=== PATIENT | male | born 1945 | race African-American/Black ===

== ENCOUNTER 2016-04-19 05:52 | Inpatient (IN) | payer OTHER, BC ==
[2016-04-14 11:30] VITALS: BMI 31.6
[2016-04-19] MEDS ORDERED: GABAPENTIN 300 MG CAPSULE (FP) PO ONE (07:06)
[2016-04-19] MEDS ORDERED: CEFAZOLIN 2 GM in DEXTROSE 5%-WATER - 50 ML IVPB ONE (07:06)
[2016-04-19] MEDS ORDERED: CELECOXIB 200 MG CAPSULE PO ONE (07:06)
[2016-04-19] MEDS ORDERED: ROPIVICAINE 0.2%/MORPH PF/KETOROLAC - 51ML DISP.SYRINGE IA ONE ×2 (07:06→11:01)
[2016-04-19] MEDS ORDERED: TRANEXAMIC ACID 1000 MG/10 ML VIAL IVPUSH ONE ×2 (07:06→14:00)
[2016-04-19] MEDS ORDERED: DEXAMETHASONE SOD PHOSPHATE/PF 10 MG/ML SDV ONE (07:46)
[2016-04-19] MEDS ORDERED: ROPIVACAINE HCL 0.5% 30ML VIAL ONE (07:46)
[2016-04-19] MEDS ORDERED: MIDAZOLAM HCL 2 MG/2 ML SINGLE DOSE VIAL ONE (07:46)
[2016-04-19] MEDS ORDERED: PROPOFOL 20 ML ONE (08:40)
[2016-04-19] MEDS ORDERED: SUCCINYLCHOLINE CHLORIDE 200 MG/10 ML VIAL ONE (08:40)
[2016-04-19] MEDS ORDERED: ROCURONIUM BROMIDE 50 MG/5 ML VIAL ONE (08:41)
[2016-04-19] MEDS ORDERED: ceFAZolin SODIUM 1 GM VIAL ONE (08:53)
[2016-04-19] MEDS ORDERED: PROMETHAZINE HCL 25 MG/1 ML VIAL IVPUSH PRN (09:17)
[2016-04-19] MEDS ORDERED: oxyCODONE HCL 5 MG TABLET PO PRN (09:17)
[2016-04-19] MEDS ORDERED: ONDANSETRON 4 MG/2 ML VIAL IVPUSH PRN (09:17)
[2016-04-19] MEDS ORDERED: ROPIVACAINE 0.2% 400ML 400 ML ML NR ONE (09:17)
[2016-04-19] MEDS ORDERED: LACTATED RINGERS SOLUTION 1,000 ML IV SCH ×2 (09:30→11:15)
[2016-04-19] MEDS ORDERED: GABAPENTIN 300 MG CAPSULE (FP) PO SCH (10:00)
[2016-04-19] MEDS ORDERED: ONDANSETRON 4 MG/2 ML VIAL IVPB PRN (11:05)
[2016-04-19] MEDS ORDERED: MAG HYDROX/AL HYDROX/SIMETH 30 ML UNIT-DOSE CUP PO PRN (11:05)
[2016-04-19] MEDS ORDERED: MAGNESIUM HYDROX 2400MG/30ML ORAL SUSPENSION 30 ML CUP PO PRN (11:05)
[2016-04-19] MEDS ORDERED: ACETAMINOPHEN 1000 MG/100 ML VIAL (NON FORMULARY) IVPB ONE ×2 (12:00)
[2016-04-19] MEDS ORDERED: ONDANSETRON 4 MG/2 ML VIAL ONE (12:45)
[2016-04-19] MEDS ORDERED: ONDANSETRON 4 MG/2 ML VIAL IVPUSH ONE (12:45)
[2016-04-19] MEDS: CEFAZOLIN 2 GM/D5W 50 ML IVPB SCH ×2 (16:00→23:38)
[2016-04-19] MEDS: ACETAMINOPHEN 325 MG TABLET (FP) PO SCH ×2 (18:16→23:38)
--- NOTE | 2016-04-19 20:50 | CONSULT ---
Consultation: REQUESTING PROVIDER: Dr. Katz CONSULT REQUEST: We have been asked to medically evaluate this patient for ( Medical Management). HISTORY OF PRESENT ILLNESS: This is a 70 y/o male with a past medical history of Diabetes Mellitus, HTN, HLD. s/p L-TKR POD #0. Patient received at bedside alert, awake and oriented. Patient reports no pain to left knee, with full sensation to LLE. Patient reports PS 0/10. Patient reports passing flatulence, voiding, tolerating PO liquids. Patient denies fever, cough, SOB, CP, AP, N/V/D, dysuria. Past Medical History: See HPI Past Surgical History: R knee L Hip (2002) Social History: Smoking: Never Alcohol: Occasionally Drugs: None Lives at home with spouse, walks unassisted Family History: Non-contributing Allergies Allergy/AdvReac Type Severity Reaction Status Date / Time No Known Drug Allergies Allergy Verified 04/19/16 06:36 Home Medications Medication Instructions Recorded Metformin HCl 500 mg PO DAILY 04/14/16 Ramipril 5 mg PO DAILY 04/14/16 Simvastatin 10 mg PO HS 04/14/16 REVIEW OF SYSTEMS: CONSTITUTIONAL: Absent: fever, chills, diaphoresis, generalized weakness, malaise, loss of appetite, weight change HEENT: Absent: rhinorrhea, nasal congestion, throat pain, throat swelling, difficulty swallowing, mouth swelling, ear pain, eye pain, visual changes CARDIOVASCULAR: Absent: chest pain, syncope, palpitations, irregular heart rate, lightheadedness , peripheral edema RESPIRATORY: Absent: cough, shortness of breath, dyspnea with exertion, orthopnea, wheezing, stridor, hemoptysis GASTROINTESTINAL: Absent: abdominal pain, abdominal distension, nausea, vomiting, diarrhea, constipation, melena, hematochezia GENITOURINARY: Absent: dysuria, frequency, urgency, hesitancy, hematuria, flank pain, genital pain MUSCULOSKELETAL: left knee, back pain Absent: myalgia, arthralgia, joint swelling, neck pain SKIN: Absent: rash, itching, pallor HEMATOLOGIC/IMMUNOLOGIC: Absent: easy bleeding, easy bruising, lymphadenopathy, frequent infections ENDOCRINE: Absent: unexplained weight gain, unexplained weight loss, heat intolerance, cold intolerance NEUROLOGIC: Absent: headache, focal weakness or paresthesias, dizziness, unsteady gait, seizure, mental status changes, bladder or bowel incontinence PSYCHIATRIC: Absent: anxiety, depression, suicidal or homicidal ideation, hallucinations. PHYSICAL EXAMINATION Vital Signs - 24 hr 04/19/16 04/19/16 04/19/16 06:38 11:56 12:00 Temperature 98.6 F 97.5 F L Pulse Rate 77 81 75 Respiratory 16 18 18 Rate Blood Pressure 148/80 140/84 158/90 O2 Sat by Pulse 100 100 Oximetry (%) 04/19/16 04/19/16 04/19/16 12:05 12:10 12:15 Temperature Pulse Rate 67 66 72 Respiratory 18 18 18 Rate Blood Pressure 152/80 153/82 154/89 O2 Sat by Pulse 100 100 100 Oximetry (%) 04/19/16 04/19/16 04/19/16 12:30 12:45 13:00 Temperature Pulse Rate 70 57 L 63 Respiratory 18 18 18 Rate Blood Pressure 150/83 166/83 160/98 O2 Sat by Pulse 99 99 100 Oximetry (%) 04/19/16 04/19/16 04/19/16 13:13 13:14 14:28 Temperature 97.6 F Pulse Rate 59 L 59 L 67 Respiratory 18 18 18 Rate Blood Pressure 141/73 141/73 150/84 O2 Sat by Pulse 97 98 Oximetry (%) GENERAL: Awake, alert, and fully oriented, in no acute distress. HEAD: Normal with no signs of trauma. EYES: Pupils equal, round and reactive to light, extraocular movements intact, sclera anicteric, conjunctiva clear. No lid lag. EARS, NOSE, THROAT: Ears normal, nares patent, oropharynx clear without exudates. Moist mucous membranes. NECK: Normal range of motion, supple without lymphadenopathy, JVD, or masses. LUNGS: Breath sounds equal, clear to auscultation bilaterally. No wheezes, and no crackles. No accessory muscle use. HEART: Regular rate and rhythm, normal S1 and S2 without murmur, rub or gallop. ABDOMEN: Soft, nontender, not distended, normoactive bowel sounds, no guarding, no rebound, no masses. No hepatomegaly or splenomegaly. MUSCULOSKELETAL: Normal range of motion RUE/LUE/ RLE joints. LROM of LLE. No bony deformities, + L-knee tenderness, surgical dressing dry and intact, icepack ,. No CVA tenderness. UPPER EXTREMITIES: 2+ pulses, warm, well-perfused. No cyanosis. No clubbing. Cap refill <2 seconds. No peripheral edema. LOWER EXTREMITIES: 2+ pulses, warm, well-perfused. No calf tenderness. No peripheral edema. NEUROLOGICAL: Cranial nerves II-XII intact. Normal speech. Gait not observed. PSYCHIATRIC: Cooperative. Good eye contact. Appropriate mood and affect. SKIN: Warm, dry, normal turgor, no rashes or lesions noted. Laboratory Results - last 24 hr 04/19/16 04/19/16 06:26 11:56 POC Glucometer 166 171 Active Medications Generic Name Dose Route Start Last Admin Trade Name Freq PRN Reason Stop Dose Admin Acetaminophen 650 mg 04/19/16 18:00 04/19/16 18:16 Tylenol - PO 04/22/16 17:59 650 mg Q6H LINNEA Administration Al Hydroxide/Mg Hydroxide 30 ml 04/19/16 11:05 Mylanta Oral Suspension - PO Q4H PRN DYSPEPSIA Ascorbic Acid 500 mg 04/19/16 22:00 Vitamin C - PO BID [facility] Aspirin 81 mg 04/20/16 10:00 Ecotrin - PO BID [facility] Atorvastatin Calcium 10 mg 04/19/16 22:00 Lipitor - PO HS LINNEA Celecoxib 200 mg 04/20/16 10:00 Celebrex - PO DAILY LINNEA Fentanyl 25 mcg 04/19/16 09:17 Sublimaze Injection - IVPUSH 04/22/16 09:18 [id number] PRN PAIN Ferrous Sulfate 325 mg 04/19/16 22:00 Feosol - PO BID [facility] Gabapentin 300 mg 04/19/16 22:00 Neurontin - PO 04/22/16 21:59 BID LINNEA Lactated Ringer's 1,000 mls @ 75 mls/hr 04/19/16 09:30 Lactated Ringers Solution IV ASDIR LINNEA Cefazolin Sodium/Dextrose 50 mls @ 100 mls/hr 04/19/16 16:00 04/19/16 16:00 Ancef 2 Gm Premixed Ivpb - IVPB 04/20/16 00:29 100 mls/hr Q8H LINNEA Administration Lactated Ringer's 1,000 mls @ 125 mls/hr 04/19/16 11:15 Lactated Ringers Solution IV 04/20/16 06:00 ASDIR LINNEA Insulin Aspart 1 vial 04/19/16 11:09 Novolog Vial Sliding Scale - SQ 04/23/16 11:08 TIDAC PRN ELEVATED BLOOD SUGAR Protocol Magnesium Hydroxide 30 ml 04/19/16 11:05 Milk Of Magnesia - PO PRN PRN CONSTIPATION Metformin HCl 500 mg 04/20/16 07:00 Glucophage - PO ACBK LINNEA Multivitamins/Minerals/Vitamin C 1 tab 04/20/16 10:00 Tab-A-Vit - PO DAILY LINNEA Ondansetron HCl 4 mg 04/19/16 11:05 Zofran Injection IVPB Q6H PRN NAUSEA Oxycodone HCl 10 mg 04/19/16 10:00 Oxycontin - PO 04/22/16 09:18 BID LINNEA Oxycodone HCl 10 mg 04/19/16 09:17 Roxicodone - PO 04/22/16 09:18 Q4H PRN PAIN LEVEL 6-10 Oxycodone HCl 5 mg 04/19/16 09:17 Roxicodone - PO 04/22/16 09:18 Q4H PRN PAIN LEVEL 1-5 Pantoprazole Sodium 40 mg 04/20/16 10:00 Protonix - PO DAILY [facility] Ramipril 5 mg 04/20/16 10:00 Altace - PO DAILY [facility] Senna/Docusate Sodium 2 tablet 04/19/16 22:00 Pericolace - PO BID [facility] ASSESSMENT/PLAN: This is a 70 y/o man s/p L-TKR POD #0. Plan: 1. Continue Ortho Regimen - Monitor CBC - Incentive Spirometry - PT 2. Diabetes Mellitus - BGMs - FSS - Continue home meds 3. HLD - Continue home meds 4. FEN - PO Fluids - Replete lytes prn - Low Na Diet 5. DVT/PPI Prophylaxis - OOB - SCDs - PPI Dispo: We will continue to follow the patient. Thank you for this consultative opportunity. Problem List - Problems (1) Status post total left knee replacement Code(s): Z96.652 - PRESENCE OF LEFT ARTIFICIAL KNEE JOINT (2) Diabetes mellitus Code(s): E11.9 - TYPE 2 DIABETES MELLITUS WITHOUT COMPLICATIONS (3) HTN (hypertension) Code(s): I10 - ESSENTIAL (PRIMARY) HYPERTENSION (4) HLD (hyperlipidemia) Code(s): E78.5 - HYPERLIPIDEMIA, UNSPECIFIED (5) DVT prophylaxis Code(s): OHV9325 - Visit type - Emergency Visit Emergency Visit: No - New Patient This patient is new to me today: Yes Date on this admission: 04/19/16 - Critical Care Critical Care patient: No
[2016-04-19] MEDS: GABAPENTIN 300 MG CAPSULE (FP) PO SCH (21:46)
[2016-04-19] MEDS: SENNOSIDES/DOCUSATE COMBO (SENNA PLUS) TABLET (UD) PO SCH (21:46)
[2016-04-19] MEDS: ASCORBIC ACID 500 MG TABLET (FP) PO SCH (21:46)
[2016-04-19] MEDS: FERROUS SO4 325 MG TABLET (FP) PO SCH (21:46)
[2016-04-19] MEDS: ATORVASTATIN CA 10 MG TABLET (FP) PO SCH (21:46)
[2016-04-19] MEDS: oxyCODONE HCL 10 MG SUSTAINED ACTING TABLET PO SCH (21:47)
[2016-04-19] MEDS: oxyCODONE HCL 5 MG TABLET PO PRN (21:47)
[2016-04-20] MEDS: ACETAMINOPHEN 325 MG TABLET (FP) PO SCH ×4 (05:53→23:46)
[2016-04-20] MEDS: oxyCODONE HCL 5 MG TABLET PO PRN ×5 (05:54→23:46)
[2016-04-20] MEDS ORDERED: INSULIN (NOVOLOG) ASPART 100 UNITS/ML 10ML VIAL ONE (06:54)
[2016-04-20] MEDS: INSULIN SLIDING SCALE (NOVOLOG) 1 VIAL SQ PRN (06:57)
[2016-04-20] MEDS: metFORMIN HCL 500 MG TABLET (FP) PO SCH (06:57)
[2016-04-20 07:51] LABS: MCH 30.8 pg (25.7-33.7); MCHC 33.2 g/dl (32.0-35.9); MEAN CELL VOLUME 92.8 fl (80-96); MEAN PLT VOLUME 8.7 fl (7.5-11.1); PLATELET COUNT 179 K/MM3 (134-434); RDW 13.4 % (11.9-15.9); WHITE BLOOD COUNT 10.1 K/mm3 (4.0-10.0)
[2016-04-20 08:32] LABS: CREATININE 1.3 mg/dl (0.6-1.3)
--- NOTE | 2016-04-20 08:40 | PN ---
[id number] upon movement OBJECTIVE:This is a 70 y/o male with a past medical history of osteoarthritis, Diabetes Mellitus, HTN, HLD. s/p L-TKR POD #1. Vital Signs Period Temp Pulse Resp BP Sys/Warner Pulse Ox Last 24 Hr 97.5 F-98.3 F 57-81 16-18 115-166/67-98 97-100 GENERAL: The patient is awake, alert, and fully oriented, in no acute distress. HEAD: Normal with no signs of trauma. EYES: PERRL, extraocular movements intact, sclera anicteric, conjunctiva clear. No ptosis. ENT: Ears normal, nares patent, oropharynx clear without exudates, moist mucous membranes. NECK: Trachea midline, full range of motion, supple. LUNGS: Breath sounds equal, clear to auscultation bilaterally, no wheezes, no crackles, no accessory muscle use. HEART: Regular rate and rhythm, S1, S2 without murmur, rub or gallop. ABDOMEN: Soft, nontender, nondistended, normoactive bowel sounds, no guarding, no rebound, no hepatosplenomegaly, no masses. EXTREMITIES: 2+ pulses, warm, well-perfused, no edema. LEFT LOWER EXTREMITY: dressing noted a clean dry and intact, less than 2 second capillary refill +4 pedal pulse NEUROLOGICAL: Cranial nerves II through XII grossly intact. Normal speech, gait not observed. PSYCH: Normal mood, normal affect. SKIN: Warm, dry, normal turgor, no rashes or lesions noted Laboratory Results - last 24 hr 04/19/16 04/19/16 04/20/16 11:56 22:53 06:46 WBC RBC Hgb Hct MCV MCHC RDW Plt Count MPV Sodium Potassium Chloride Carbon Dioxide Anion Gap BUN Creatinine POC Glucometer 171 189 141 Random Glucose Calcium 04/20/16 04/20/16 07:00 07:00 WBC 10.1 H RBC 3.33 L Hgb 10.3 L Hct 30.9 L MCV 92.8 MCHC 33.2 RDW 13.4 Plt Count 179 MPV 8.7 Sodium 136 Potassium 4.3 Chloride 103 Carbon Dioxide 25 Anion Gap 8 BUN 17 Creatinine 1.3 POC Glucometer Random Glucose 143 H Calcium 9.0 Active Medications Generic Name Dose Route Start Last Admin Trade Name Freq PRN Reason Stop Dose Admin Acetaminophen 650 mg 04/19/16 18:00 04/20/16 05:53 Tylenol - PO 04/22/16 17:59 650 mg Q6H LINNEA Administration Al Hydroxide/Mg Hydroxide 30 ml 04/19/16 11:05 Mylanta Oral Suspension - PO Q4H PRN DYSPEPSIA Ascorbic Acid 500 mg 04/19/16 22:00 04/19/16 21:46 Vitamin C - PO 500 mg BID LINNEA Administration Aspirin 81 mg 04/20/16 10:00 Ecotrin - PO BID [facility] Atorvastatin Calcium 10 mg 04/19/16 22:00 04/19/16 21:46 Lipitor - PO 10 mg HS [facility] Administration Celecoxib 200 mg 04/20/16 10:00 Celebrex - PO DAILY [facility] Fentanyl 25 mcg 04/19/16 09:17 Sublimaze Injection - IVPUSH 04/22/16 09:18 [id number] PRN PAIN Ferrous Sulfate 325 mg 04/19/16 22:00 04/19/16 21:46 Feosol - PO 325 mg BID [facility] Administration Gabapentin 300 mg 04/19/16 22:00 04/19/16 21:46 Neurontin - PO 04/22/16 21:59 300 mg BID [facility] Administration Lactated Ringer's 1,000 mls @ 75 mls/hr 04/19/16 09:30 Lactated Ringers Solution IV ASDIR [facility] Insulin Aspart 1 vial 04/19/16 11:09 04/20/16 06:57 Novolog Vial Sliding Scale - SQ 04/23/16 11:08 2 units TIDAC PRN Administration ELEVATED BLOOD SUGAR Protocol Magnesium Hydroxide 30 ml 04/19/16 11:05 Milk Of Magnesia - PO PRN PRN CONSTIPATION Metformin HCl 500 mg 04/20/16 07:00 04/20/16 06:57 Glucophage - PO 500 mg ACBK [facility] Administration Multivitamins/Minerals/Vitamin C 1 tab 04/20/16 10:00 Tab-A-Vit - PO DAILY [facility] Ondansetron HCl 4 mg 04/19/16 11:05 Zofran Injection IVPB Q6H PRN NAUSEA Oxycodone HCl 10 mg 04/19/16 10:00 04/19/16 21:47 Oxycontin - PO 04/22/16 09:18 10 mg BID [facility] Administration Oxycodone HCl 10 mg 04/19/16 09:17 04/20/16 05:54 Roxicodone - PO 04/22/16 09:18 10 mg Q4H PRN Administration PAIN LEVEL 6-10 Oxycodone HCl 5 mg 04/19/16 09:17 Roxicodone - PO 04/22/16 09:18 Q4H PRN PAIN LEVEL 1-5 Pantoprazole Sodium 40 mg 04/20/16 10:00 Protonix - PO DAILY LINNEA Ramipril 5 mg 04/20/16 10:00 Altace - PO DAILY LINNEA Senna/Docusate Sodium 2 tablet 04/19/16 22:00 04/19/16 21:46 Pericolace - PO 2 tablet BID LINNEA Administration ASSESSMENT/PLAN: 1. S/P left total knee replacement POD #1 - pt as per orthopedic regimen - prn pain medication - Monitor CBC - Incentive Spirometry 2. endo pmh of NIDDM - fingersticks before meals and at bedtime with regular insulin coverage 3. HLD - continue altace, blood pressure at goal 4. FEN - Replete lytes prn - Low Na Diet 5. DVT/PPI Prophylaxis - OOB - SCDs - PPI Dispo: We will continue to follow the patient. Thank you for this consultative opportunity. Visit type - Emergency Visit Emergency Visit: Yes ED Registration Date: 04/19/16 Care time: The patient presented to the Emergency Department on the above date and was hospitalized for further evaluation of their emergent condition. - New Patient This patient is new to me today: No - Critical Care Critical Care patient: No - Discharge Referral Referred to [facility] Med P.C.: No
[2016-04-20] MEDS: GABAPENTIN 300 MG CAPSULE (FP) PO SCH ×2 (09:20→21:32)
[2016-04-20] MEDS: PANTOPRAZOLE 40 MG TABLET (FP) PO SCH (09:21)
[2016-04-20] MEDS: CELECOXIB 200 MG CAPSULE PO SCH (09:21)
[2016-04-20] MEDS: SENNOSIDES/DOCUSATE COMBO (SENNA PLUS) TABLET (UD) PO SCH ×2 (09:21→21:31)
[2016-04-20] MEDS: FERROUS SO4 325 MG TABLET (FP) PO SCH ×2 (09:21→21:31)
[2016-04-20] MEDS: MULTIVITAMINS (DAILY MVI) TABLET (FP) PO SCH (09:21)
[2016-04-20] MEDS: ASPIRIN COATED 81 MG TABLET.EC PO SCH ×2 (09:22→21:31)
[2016-04-20] MEDS: ASCORBIC ACID 500 MG TABLET (FP) PO SCH ×2 (09:22→21:31)
[2016-04-20] MEDS: RAMIPRIL 5 MG CAPSULE (FP) PO SCH (09:24)
[2016-04-20] MEDS: oxyCODONE HCL 10 MG SUSTAINED ACTING TABLET PO SCH ×2 (09:25→21:30)
--- NOTE | 2016-04-20 11:11 | OP ---
DATE OF OPERATION: SURGEON: Derek Davis MD ANESTHESIOLOGIST: Michael Reddy MD TYPE OF ANESTHESIA: LMA general with an adductor canal block with an indwelling catheter. PREOPERATIVE DIAGNOSIS: Severe left knee osteoarthritis with approximately 10 degrees of varus deformity, 15-degree flexion contracture. PROCEDURE: Computer-navigated left total knee replacement. HARDWARE USED: [employer] PFC Sigma PCL-retaining knee replacement system with a size 6 Pressfit femur, size 6 cemented tibia, and a 10-mm polyethylene liner. Patella was left unresurfaced. BLOOD LOSS: Approximately 150-200 mL. ANTIBIOTICS: Kefzol 2 g was given preoperatively for prophylaxis against infection. A 3rd gram was given at the time of wound closure. There was 1 g of tranexamic acid given preoperatively, a 2nd gram was given at the time of wound closure, a 3rd gram was instilled into the 2nd at the time of wound closure. COMPLICATIONS: None. CAFETERIA TEAM LEADER: The veterinary technician assistant is Mr. Ish Xavier, whose skilled surgical assistance was necessary for the retraction and protection of vital structures and for the handling and implementation of precise and delicate surgical instrumentation as well as the overall safe conveyance of the procedure. SURGEON: Derek Davis MD INDICATIONS: The patient is a 70-year-old male with severe, progressive knee osteoarthritis unrelieved with extensive conservative treatment. Treatment options were reviewed with the patient prior to surgery. Additional conservative treatment versus surgery were discussed with the patient at length. The patient wished to proceed with surgery. The risks of surgery were explained included, but not be limited to, infection, stiffness, continued pain, chance that not all his symptoms may be relieved, chance that his knee replacement could loosen up during its intended lifespan and need to be revised, chance that despite surgery he may have continued pain, chance that he could have a blood clot that could spread from his legs to his lungs and even cause , and this could occur despite prophylaxis against deep venous thrombosis, chance that he would have a permanent neurologic injury leading to permanent loss use or function and permanent chronic pain in his leg, chance that should he develop an infection it would be a complete disaster necessitating removing his knee, placing him on long-term IV antibiotics, and chance that should an infection not be curable he could be left without a knee replacement and an unlikely, but possible scenario, should he have an infection that becomes life threatening he may require an amputation of his leg. The patient understands this. He is identified. His left knee is the operative site, which was confirmed with the operating room staff, and he agrees to proceed with the planned procedure. DESCRIPTION OF PROCEDURE: After administration of an adductor canal block with indwelling catheter in the preoperative holding area, the patient is brought into the operating room where LMA general anesthetic was administered by the anesthesiologist. Tourniquet was placed behind the left leg, and the left leg was then prepped and draped in the usual sterile manner. Standard midline incision was made. The incision was approximately 15-20 cm in length. The incision was started just superior to the superior pole of the patella extending down just slightly past the tibial tubercle. The incision was carried down to the subcutaneous tissues onto the extensor mechanism of the knee. Electrocautery device was used to maintain hemostasis throughout the procedure. The quadriceps tendon was entered superiorly, and it was divided in line with its fibers roughly in the junction between the 2/3 and 1/3 at the more medial aspect leaving the majority of the quadriceps still attached distally. This was then curved. Incision was carried down past the patella curving around the patella leaving a small cuff of patella retinaculum for later repair. The patella was everted. The patient had severe tricompartmental osteoarthritis. All osteophytes and menisci was removed. ACL was released. PCL was recessed. Capsular recessions were performed to help correct the patient's 15 degrees of flexion contracture. Two sets of 4-mm guide pins were then placed in the medial aspect of the proximal tibia and medial aspect of the distal femur too, which the computer were then attached. The patient's hip center of rotation and patient's bony anatomy was then entered into the computer navigation device. The tibia and then the femur were then machined to correct the patient's 10-degree varus deformity and 15-degree flexion contracture creating balance flexion extension gaps with full and easy extension, full and easy flexion with a size 6 component with a 10-mm trial polyethylene tibial spacer with good tracking of the patella. The trial components were then removed. The exposed bony cancellous surface was then prepared using a jet lavage to create clean, exposed bony cancellous surfaces. One bag of [employer] bone cement was then mixed in a vacuum mixing bowl. This was then precoated on the tibial component and finger impacted on the exposed bony cancellous surface of the tibia. The tibial component was then impacted in place and then the femoral components were then packed in place. This was held in extension with a trial polyethylene liner until the cemented hardened. After the cement was hardened, all excess bone cement was removed. The knee was taken through a range of motion and found to have neutral varus and valgus alignment with balanced flexion and extension gaps, good tracking of the patella. The trial tibial spacer was then removed. The final polyethylene liner was then impacted and placed after thorough irrigation with the jet lavage. Again, the knee had full and easy extension and full and easy flexion with balanced flexion and extension gaps. The wounds were then irrigated with copious amounts of antibiotic normal saline solution. This was evacuated. A dilute Betadine solution was then set into the knee and left to sit for 3 minutes. This was evacuated, and again, the knee was irrigated with copious amounts of antibiotic normal saline solution. Hemostasis was achieved throughout the case, and it was once again, with the electrocautery device, the extensor mechanism was then reapproximated to itself using [id number] interrupted No. 1 Vicryl sutures. With the knee maximally flexed, a running No. 1 Stratafix suture to further reapproximate the extensor mechanism with 1 g of tranexamic acid as well a pain cocktail of bupivacaine, morphine, and Toradol were instilled into the knee. The subcutaneous tissues were then irrigated with copious amounts of antibiotic normal saline solution. The deeper tissues were closed with 2-0 Vicryl sutures, and the skin edges were reapproximated with a running Stratafix suture tied with the knee in maximal flexion. The pinhole sites were closed with Dermabond. The wound edges were further closed with Dermabond after the Dermabond had hardened. Aquacel dressings were then applied. ABD pads and thigh-high Mc stockings were then applied. The patient was then awoken and transported to the recovery room in stable condition having tolerated the procedure well. Postoperatively the patient is going to be full weightbearing as tolerated. We are going to have DVT prophylaxis with early ambulation, aspirin, sequential compression devices, Mc stockings. We are going to discontinue prophylactic antibiotics within 24 hours. We are not going to use a Serrano catheter for fear of causing a urinary tract infection with a subsequent dreaded periprosthetic infection. Of note, during the procedure, the patient had a thigh-high Mc stocking and sequential compression device on his nonoperative leg throughout the procedure. DEREK DAVIS M.D. [id number]
--- NOTE | 2016-04-20 12:30 | PN ---
Progress Note (short form) - Note Progress Note: Anesthesia Pt s/p TKR under spinal w adductor canal cath and tibial nerve block for postop pain control. O: VAS 3/10 -- alleviated by po pain meds. Pt c/o leaking around adductor canal catheter insertion site. Catheter appears to have been partially pulled out. No redness or swelling. A/P: POD #1 for TKR. Stable postop course. No complications secondary to anesthesia. Adductor catheter pulled, tip intact. Continue po pain meds.
--- NOTE | 2016-04-20 15:53 | PN ---
Progress Note (short form) - Note Progress Note: Orthopedics S: Patient relates feeling well, pain well controlled. Denies any Numbness/ tingling to either lower extremity. Denies CP/SOB/N/D/V/Calf pain or cramping. Ambulating PT with walk walker. Tolerating diet and voiding without compromise. O: CBC, BMP 04/20/16 07:00 04/20/16 07:00 Vital Signs Period Temp Pulse Resp BP Sys/Warner Pulse Ox Last 24 Hr 98.3 F-98.6 F 66-76 16-19 115-149/67-77 96-97 GEN: Patient supine in recliner during physical therapy. STEWART/NAD/VSS/Afebrile, color good well appearing answering all questions appropriately. L LE: Skin warm and dry, dressings with minimal staining. Mild edema to knee without erythema/warmth. Sensation intact to light touch throughout, neurovascularly intact distally. Strength 5/5 EHL/FHL/TA/GS with good dorsi/ plantar flexion. Calf soft non-tender, pedal pulses x2 intact. A/P: 70M s/p L TKR POD#1 1. Pain control 2. WBAT L LE; use walker for ambulation 3. Cont. PT for ambulation/strength, stability 4. DVT Proph: EC ASA 81mg BID x4 weeks 5. Neuro checks L LE per unit routine 6. Patient may shower, maintain dressing 7. H&H/WBC stable 8. d/c planning
[2016-04-20] MEDS: ATORVASTATIN CA 10 MG TABLET (FP) PO SCH (21:31)
[2016-04-21] MEDS: ACETAMINOPHEN 325 MG TABLET (FP) PO SCH ×2 (06:23→13:12)
[2016-04-21] MEDS: oxyCODONE HCL 5 MG TABLET PO PRN ×3 (06:24→14:11)
[2016-04-21 06:27] VITALS: BP 153/65; PULSE 79; TEMP 98
[2016-04-21] MEDS: metFORMIN HCL 500 MG TABLET (FP) PO SCH (06:28)
[2016-04-21] MEDS: INSULIN SLIDING SCALE (NOVOLOG) 1 VIAL SQ PRN (06:50)
[2016-04-21 09:02] LABS: MCH 31.1 pg (25.7-33.7); MCHC 32.9 g/dl (32.0-35.9); MEAN CELL VOLUME 94.5 fl (80-96); MEAN PLT VOLUME 9.3 fl (7.5-11.1); PLATELET COUNT 184 K/MM3 (134-434); RDW 13.5 % (11.9-15.9); WHITE BLOOD COUNT 9.3 K/mm3 (4.0-10.0)
[2016-04-21] MEDS: oxyCODONE HCL 10 MG SUSTAINED ACTING TABLET PO SCH (09:21)
[2016-04-21] MEDS: CELECOXIB 200 MG CAPSULE PO SCH (09:22)
[2016-04-21] MEDS: RAMIPRIL 5 MG CAPSULE (FP) PO SCH (09:22)
[2016-04-21] MEDS: FERROUS SO4 325 MG TABLET (FP) PO SCH (09:22)
[2016-04-21] MEDS: PANTOPRAZOLE 40 MG TABLET (FP) PO SCH (09:22)
[2016-04-21] MEDS: MULTIVITAMINS (DAILY MVI) TABLET (FP) PO SCH (09:23)
[2016-04-21] MEDS: ASPIRIN COATED 81 MG TABLET.EC PO SCH (09:24)
[2016-04-21] MEDS: GABAPENTIN 300 MG CAPSULE (FP) PO SCH (09:24)
[2016-04-21] MEDS: SENNOSIDES/DOCUSATE COMBO (SENNA PLUS) TABLET (UD) PO SCH (09:24)
[2016-04-21] MEDS: ASCORBIC ACID 500 MG TABLET (FP) PO SCH (09:24)
--- NOTE | 2016-04-26 14:42 | PATH ---
Surgical Pathology Report Patient Name: SANJIV LIND Med. Rec. #: [id number] /Age/Gender: 1945 (Age: 70) / M Account: [id number] Location: [facility] MED-SURG Taken: 04/19/2016 Received: 04/19/2016 Reported: 04/26/2016 Physicians: Declan Katz M.D. Specimen(s) Received BONE LEFT KNEE Clinical History Unilateral primary osteoarthritis left knee Final Diagnosis BONE, LEFT KNEE, TOTAL KNEE REPLACEMENT: DEGENERATIVE JOINT DISEASE. Electronically Signed Alysa Romero M.D. Gross Description Received in formalin, labeled "bone left knee," is a 15.0 x 11.0 x 2.0 cm aggregate of multiple rivera, irregular portions of bone and soft tissue. The tibial plateau measures 8.5 x 6.2 x 1.5 cm. There is a 2 cm in greatest dimension area of eburnation present. The remaining articular surfaces are rivera-yellow and diffusely granular. The underlying trabecular bone is yellow and hard. Pullman Conductor sections are submitted in one cassette, following decalcification. 04/21/201604/21/2016
== END 2016-04-21 14:15 | disposition home health service (06) | DRG 470 ==
LOC: FM/S 05:52
PROVIDERS: ADMIT Orthopaedic Surgery; ATTEND Orthopaedic Surgery
PROC: 8E0YXBZ Computer Assisted Procedure of Lower Extremity (ICD-10-PCS; 2016-04-19)
PROC: 0SRD0J9 Replacement of Left Knee Joint with Synthetic Substitute, Cemented, Open Approach (ICD-10-PCS; principal; 2016-04-19 09:29)
DX: M17.12 Unilateral primary osteoarthritis, left knee (principal); E11.9 Type 2 diabetes mellitus without complications; Z79.4 Long term (current) use of insulin; I10 Essential (primary) hypertension; E78.5 Hyperlipidemia, unspecified; Z96.651 Presence of right artificial knee joint
CPT/HCPCS: 36415; 73560-TC-LT; 80048; 85027; 88304-TC; 94010; 94760; 97116-GP; 97162-GP

== ENCOUNTER 2016-10-04 06:43 | Inpatient (IN) | payer OTHER, BC ==
[2016-09-19 11:07] VITALS: BMI 31.4
[2016-10-04] MEDS ORDERED: DEXAMETHASONE SOD PHOSPHATE/PF 10 MG/ML SDV ONE (07:10)
[2016-10-04] MEDS ORDERED: BUPIVACAINE HCL/PF (5 MG/ML) 30 ML VIAL IJ ONE (07:11)
[2016-10-04] MEDS ORDERED: MIDAZOLAM HCL 2 MG/2 ML SINGLE DOSE VIAL ONE (07:11)
[2016-10-04] MEDS ORDERED: SODIUM CHLORIDE 0.9% P/F 10 ML VIAL IJ ONE (07:11)
[2016-10-04] MEDS ORDERED: ROPIVICAINE 0.2%/MORPH PF/KETOROLAC - 51ML DISP.SYRINGE IA ONE ×2 (07:23→11:39)
[2016-10-04] MEDS ORDERED: TRANEXAMIC ACID 1000 MG/10 ML VIAL ONE ×2 (07:23→09:23)
[2016-10-04] MEDS ORDERED: oxyCODONE HCL 10 MG SUSTAINED ACTING TABLET ONE (07:56)
[2016-10-04] MEDS ORDERED: GABAPENTIN 300 MG CAPSULE (FP) ONE (07:57)
[2016-10-04] MEDS ORDERED: CELECOXIB 200 MG CAPSULE ONE (07:57)
[2016-10-04] MEDS ORDERED: ONDANSETRON 4 MG/2 ML VIAL ONE (08:58)
[2016-10-04] MEDS ORDERED: DEXAMETHASONE SOD PHOSPHATE 4 MG/1 ML VIAL ONE (08:58)
[2016-10-04] MEDS ORDERED: SUCCINYLCHOLINE CHLORIDE 200 MG/10 ML VIAL ONE (08:59)
[2016-10-04] MEDS ORDERED: ROCURONIUM BROMIDE 50 MG/5 ML VIAL ONE (08:59)
[2016-10-04] MEDS ORDERED: PROPOFOL 20 ML ONE (08:59)
[2016-10-04] MEDS ORDERED: ceFAZolin SODIUM 1 GM VIAL ONE (09:11)
[2016-10-04] MEDS ORDERED: PHENYLEPHRINE HCL 10 MG/1 ML SINGLE DOSE VIAL ONE ×2 (09:23→09:24)
[2016-10-04] MEDS ORDERED: HYDROmorphone HCL/PF 1 MG/ML VIAL (FOR PYXIS CHARGING ONLY) ONE (10:35)
[2016-10-04] MEDS ORDERED: oxyCODONE HCL 5 MG TABLET PO PRN (10:40)
[2016-10-04] MEDS ORDERED: ONDANSETRON 4 MG/2 ML VIAL IVPUSH PRN (10:40)
[2016-10-04] MEDS ORDERED: ACETAMINOPHEN 325 MG TABLET (FP) PO SCH (10:45)
[2016-10-04] MEDS ORDERED: LACTATED RINGERS SOLUTION 1,000 ML IV SCH ×2 (10:45→13:15)
[2016-10-04] MEDS ORDERED: TRANEXAMIC ACID 1000 MG/10 ML VIAL IVPUSH ONE (11:37)
[2016-10-04] MEDS ORDERED: ONDANSETRON 4 MG/2 ML VIAL IVPB PRN (13:19)
[2016-10-04] MEDS ORDERED: MAG HYDROX/AL HYDROX/SIMETH 30 ML UNIT-DOSE CUP PO PRN (13:19)
[2016-10-04] MEDS ORDERED: TRANEXAMIC ACID 1000 MG/10 ML VIAL IVPB ONE (15:00)
[2016-10-04] MEDS: oxyCODONE HCL 5 MG TABLET PO PRN ×2 (15:28→21:40)
[2016-10-04] MEDS: CEFAZOLIN 2 GM/D5W 50 ML IVPB SCH (18:19)
[2016-10-04] MEDS: SENNOSIDES/DOCUSATE COMBO (SENNA PLUS) TABLET (UD) PO SCH (21:39)
[2016-10-04] MEDS: GABAPENTIN 300 MG CAPSULE (FP) PO SCH (21:39)
[2016-10-04] MEDS: FERROUS SO4 325 MG TABLET (FP) PO SCH (21:39)
[2016-10-04] MEDS: ASCORBIC ACID 500 MG TABLET (FP) PO SCH (21:40)
[2016-10-04] MEDS: oxyCODONE HCL 10 MG SUSTAINED ACTING TABLET PO SCH (21:40)
[2016-10-04] MEDS: ACETAMINOPHEN 325 MG TABLET (FP) PO SCH (21:41)
[2016-10-05] MEDS: CEFAZOLIN 2 GM/D5W 50 ML IVPB SCH (01:29)
--- NOTE | 2016-10-05 02:53 | CONSULT ---
Consultation: REQUESTING PROVIDER: Dr. Katz CONSULT REQUEST: We have been asked to medically evaluate this patient for ( medical management). HISTORY OF PRESENT ILLNESS: This is a pleasant 71 y/o man with a past medical hx of Osteoarthritis. Who is Day 0 R-TKR. Patient is aaox3, who has no complaints at present. Patient reports ambulating with his waker/RN to the bathroom this evening. He denies active pain, 0/10 to his right knee. Patient reports having full sensation to her operative leg/foot. Patient reports voiding, no BM or flatulence. Patient reports eating and drinking without incident. Patient denies feverm chills, cough, SOB, CP, palpitations, AP, N/V/D, constipation, dysuria PAST MEDICAL HISTORY: HTN HLD [place] DM PAST SURGICAL HISTORY: L- THR L-THR Colonoscopy FAMILY HISTORY: Non-Contributory SOCIAL HISTORY: Tobacco: Never Alcohol: Socially Illicit Drugs: None REVIEW OF SYSTEMS: CONSTITUTIONAL: generalized weakness Absent: fever, chills, diaphoresis, malaise, loss of appetite, weight change HEENT: Absent: rhinorrhea, nasal congestion, throat pain, throat swelling, difficulty swallowing, mouth swelling, ear pain, eye pain, visual changes CARDIOVASCULAR: Absent: chest pain, syncope, palpitations, irregular heart rate, lightheadedness , peripheral edema RESPIRATORY: Absent: cough, shortness of breath, dyspnea with exertion, orthopnea, wheezing, stridor, hemoptysis GASTROINTESTINAL: Absent: abdominal pain, abdominal distension, nausea, vomiting, diarrhea, constipation, melena, hematochezia GENITOURINARY: Absent: dysuria, frequency, urgency, hesitancy, hematuria, flank pain, genital pain MUSCULOSKELETAL: Absent: myalgia, arthralgia, joint swelling, back pain, neck pain SKIN: Absent: rash, itching, pallor HEMATOLOGIC/IMMUNOLOGIC: Absent: easy bleeding, easy bruising, lymphadenopathy, frequent infections ENDOCRINE: Absent: unexplained weight gain, unexplained weight loss, heat intolerance, cold intolerance NEUROLOGIC: Absent: headache, focal weakness or paresthesias, dizziness, unsteady gait, seizure, mental status changes, bladder or bowel incontinence PSYCHIATRIC: Absent: anxiety, depression, suicidal or homicidal ideation, hallucinations. PHYSICAL EXAMINATION Vital Signs - 24 hr 10/04/16 10/04/16 10/04/16 07:30 12:28 12:35 Temperature 98.4 F 98.4 F Pulse Rate 83 97 H 98 H Respiratory 18 18 18 Rate Blood Pressure 136/87 155/67 149/74 O2 Sat by Pulse 98 96 Oximetry (%) 10/04/16 10/04/16 10/04/16 12:40 12:45 13:00 Temperature Pulse Rate 79 79 93 H Respiratory 20 20 20 Rate Blood Pressure 141/68 134/69 146/71 O2 Sat by Pulse 97 98 98 Oximetry (%) 10/04/16 10/04/16 10/04/16 13:15 14:42 20:48 Temperature 98.2 F Pulse Rate 79 72 Respiratory 20 18 18 Rate Blood Pressure 155/92 117/65 O2 Sat by Pulse 98 Oximetry (%) 10/04/16 21:40 Temperature 97.5 F L Pulse Rate 63 Respiratory 16 Rate Blood Pressure 119/69 O2 Sat by Pulse 100 Oximetry (%) GENERAL: Awake, alert, and fully oriented, in no acute distress. HEAD: Normal with no signs of trauma. EYES: Pupils equal, round and reactive to light, extraocular movements intact, sclera anicteric, conjunctiva clear. No lid lag. EARS, NOSE, THROAT: Ears normal, nares patent, oropharynx clear without exudates. Moist mucous membranes. NECK: Normal range of motion, supple without lymphadenopathy, JVD, or masses. LUNGS: Breath sounds equal, clear to auscultation bilaterally. No wheezes, and no crackles. No accessory muscle use. HEART: Regular rate and rhythm, normal S1 and S2 without murmur, rub or gallop. ABDOMEN: Soft, nontender, not distended, normoactive bowel sounds, no guarding, no rebound, no masses. No hepatomegaly or splenomegaly. MUSCULOSKELETAL: Normal range of motion at RUE, LUE, LLE joints. No bony deformities or tenderness. No CVA tenderness. +LROM RLE +dressing dry and intact , ice pack UPPER EXTREMITIES: 2+ pulses, warm, well-perfused. No cyanosis. No clubbing. Cap refill <2 seconds. No peripheral edema. LOWER EXTREMITIES: 2+ pulses, warm, well-perfused. No calf tenderness. No peripheral edema. NEUROLOGICAL: Cranial nerves II-XII intact. Normal speech. Gait not observed. PSYCHIATRIC: Cooperative. Good eye contact. Appropriate mood and affect. SKIN: Warm, dry, normal turgor, no rashes or lesions noted. Laboratory Results - last 24 hr 10/04/16 10/04/16 07:11 12:40 POC Glucometer 145 181 Active Medications Generic Name Dose Route Start Last Admin Trade Name Freq PRN Reason Stop Dose Admin Acetaminophen 650 mg 10/04/16 20:00 10/04/16 21:41 Tylenol - PO 10/07/16 10:44 650 mg Q6H LINNEA Administration Al Hydroxide/Mg Hydroxide 30 ml 10/04/16 13:19 Mylanta Oral Suspension - PO Q4H PRN INDIGESTION Ascorbic Acid 500 mg 10/04/16 22:00 10/04/16 21:40 Vitamin C - PO 500 mg BID LINNEA Administration Aspirin 325 mg 10/05/16 08:00 Asa - PO 11/03/16 07:59 BID@0800,2000 [facility] Celecoxib 200 mg 10/05/16 10:00 Celebrex - PO DAILY [facility] Fentanyl 50 mcg 10/04/16 10:40 Sublimaze Injection - IVPUSH 10/07/16 10:41 [id number] PRN PAIN Ferrous Sulfate 325 mg 10/04/16 22:00 10/04/16 21:39 Feosol - PO 325 mg BID LINNEA Administration Gabapentin 300 mg 10/04/16 22:00 10/04/16 21:39 Neurontin - PO 300 mg BID LINNEA Administration Lactated Ringer's 1,000 mls @ 125 mls/hr 10/04/16 10:45 10/05/16 01:46 Lactated Ringers Solution IV Not Given ASDIR [facility] Lactated Ringer's 1,000 mls @ 125 mls/hr 10/04/16 13:15 10/05/16 01:47 Lactated Ringers Solution IV Not Given ASDIR [facility] Metformin HCl 500 mg 10/05/16 07:00 Glucophage - PO DAILY@0700 [facility] Multivitamins/Minerals/Vitamin C 1 tab 10/05/16 10:00 Tab-A-Vit - PO DAILY [facility] Ondansetron HCl 4 mg 10/04/16 13:19 Zofran Injection IVPB Q6H PRN NAUSEA AND/OR VOMITING Oxycodone HCl 10 mg 10/04/16 22:00 10/04/16 21:40 Oxycontin - PO 10/07/16 10:41 10 mg BID LINNEA Administration Oxycodone HCl 5 mg 10/04/16 10:40 Roxicodone - PO Q3H PRN PAIN LEVEL 1-5 Oxycodone HCl 10 mg 10/04/16 10:40 10/04/16 21:40 Roxicodone - PO 10 mg Q3H PRN Administration PAIN LEVEL 6-10 Pantoprazole Sodium 40 mg 10/05/16 10:00 Protonix - PO DAILY LINNEA Ramipril 5 mg 10/05/16 10:00 Altace - PO DAILY LINNEA Senna/Docusate Sodium 2 tablet 10/04/16 22:00 10/04/16 21:39 Pericolace - PO 2 tablet BID LINNEA Administration ASSESSMENT/PLAN: Dispo: We will continue to follow the patient. Thank you for this consultative opportunity. Problem List - Problems (1) Status post total right knee replacement Assessment/Plan: - Continue Ortho regimen - PT - Incentive spirometer - Continue home meds - Monitor CBC, BMP - Monitor vitals Code(s): Z96.651 - PRESENCE OF RIGHT ARTIFICIAL KNEE JOINT (2) Diabetes mellitus Assessment/Plan: - Controlled - BGMs - Continue home med - Monitor renal function Code(s): E11.9 - TYPE 2 DIABETES MELLITUS WITHOUT COMPLICATIONS (3) HLD (hyperlipidemia) Assessment/Plan: - Continue home med - Monitor liver function Code(s): E78.5 - HYPERLIPIDEMIA, UNSPECIFIED (4) HTN (hypertension) Assessment/Plan: - Controlled - Monitor BP - Continue home meds - Monitor renal function Code(s): I10 - ESSENTIAL (PRIMARY) HYPERTENSION (5) DVT prophylaxis Code(s): BYS5466 - Visit type - Emergency Visit Emergency Visit: No - New Patient This patient is new to me today: Yes Date on this admission: 10/04/16 - Critical Care Critical Care patient: No
[2016-10-05] MEDS: ACETAMINOPHEN 325 MG TABLET (FP) PO SCH ×4 (05:12→20:45)
[2016-10-05] MEDS: metFORMIN HCL 500 MG TABLET (FP) PO SCH (06:08)
[2016-10-05] MEDS: oxyCODONE HCL 5 MG TABLET PO PRN ×2 (06:13→13:14)
--- NOTE | 2016-10-05 08:14 | PN ---
Physical Exam: SUBJECTIVE: Patient seen and examined, reports feeling well, minimal pain to the right lower extremity, patient denies any paresthesia. OBJECTIVE: patient is a 71 y/o female with a past medical history of HTN, HLD , and NIDDM. Patient is s/p right TKR, 10/04/16, Dr Katz, spinal anesthesia. Vital Signs Period Temp Pulse Resp BP Sys/Warner Pulse Ox Last 24 Hr 97.5 F-98.4 F 63-98 16-20 115-155/65-92 96-100 GENERAL: The patient is awake, alert, and fully oriented, in no acute distress. HEAD: Normal with no signs of trauma. EYES: PERRL, extraocular movements intact, sclera anicteric, conjunctiva clear. No ptosis. ENT: Ears normal, nares patent, oropharynx clear without exudates, moist mucous membranes. NECK: Trachea midline, full range of motion, supple. LUNGS: Breath sounds equal, clear to auscultation bilaterally, no wheezes, no crackles, no accessory muscle use. HEART: Regular rate and rhythm, S1, S2 without murmur, rub or gallop. ABDOMEN: Soft, nontender, nondistended, normoactive bowel sounds, no guarding, no rebound, no hepatosplenomegaly, no masses. EXTREMITIES: 2+ pulses, warm, well-perfused, no edema. RIGHT LOWER EXTREMITY: dressing CDI, MILO/SCD, less than 3 second capillary refill, +3 pedal pulse, patient is able to move the digits of the foot without any difficulty NEUROLOGICAL: Cranial nerves II through XII grossly intact. Normal speech, gait not observed. PSYCH: Normal mood, normal affect. SKIN: Warm, dry, normal turgor, no rashes or lesions noted Laboratory Results - last 24 hr 10/04/16 10/05/16 12:40 06:05 POC Glucometer 181 164 Active Medications Generic Name Dose Route Start Last Admin Trade Name Freq PRN Reason Stop Dose Admin Acetaminophen 650 mg 10/04/16 20:00 10/05/16 05:12 Tylenol - PO 10/07/16 10:44 Not Given Q6H LINNEA Al Hydroxide/Mg Hydroxide 30 ml 10/04/16 13:19 Mylanta Oral Suspension - PO Q4H PRN INDIGESTION Ascorbic Acid 500 mg 10/04/16 22:00 10/04/16 21:40 Vitamin C - PO 500 mg BID [facility] Administration Aspirin 325 mg 10/05/16 08:00 Asa - PO 11/03/16 07:59 BID@0800,2000 [facility] Celecoxib 200 mg 10/05/16 10:00 Celebrex - PO DAILY [facility] Fentanyl 50 mcg 10/04/16 10:40 Sublimaze Injection - IVPUSH 10/07/16 10:41 [id number] PRN PAIN Ferrous Sulfate 325 mg 10/04/16 22:00 10/04/16 21:39 Feosol - PO 325 mg BID [facility] Administration Gabapentin 300 mg 10/04/16 22:00 10/04/16 21:39 Neurontin - PO 300 mg BID [facility] Administration Lactated Ringer's 1,000 mls @ 125 mls/hr 10/04/16 10:45 10/05/16 01:46 Lactated Ringers Solution IV Not Given ASDIR [facility] Lactated Ringer's 1,000 mls @ 125 mls/hr 10/04/16 13:15 10/05/16 01:47 Lactated Ringers Solution IV Not Given ASDIR [facility] Metformin HCl 500 mg 10/05/16 07:00 10/05/16 06:08 Glucophage - PO 500 mg DAILY@0700 [facility] Administration Multivitamins/Minerals/Vitamin C 1 tab 10/05/16 10:00 Tab-A-Vit - PO DAILY [facility] Ondansetron HCl 4 mg 10/04/16 13:19 Zofran Injection IVPB Q6H PRN NAUSEA AND/OR VOMITING Oxycodone HCl 10 mg 10/04/16 22:00 10/04/16 21:40 Oxycontin - PO 10/07/16 10:41 10 mg BID [facility] Administration Oxycodone HCl 5 mg 10/04/16 10:40 Roxicodone - PO Q3H PRN PAIN LEVEL 1-5 Oxycodone HCl 10 mg 10/04/16 10:40 10/05/16 06:13 Roxicodone - PO 10 mg Q3H PRN Administration PAIN LEVEL 6-10 Pantoprazole Sodium 40 mg 10/05/16 10:00 Protonix - PO DAILY [facility] Ramipril 5 mg 10/05/16 10:00 Altace - PO DAILY [facility] Senna/Docusate Sodium 2 tablet 10/04/16 22:00 10/04/16 21:39 Pericolace - PO 2 tablet BID LINNEA Administration ASSESSMENT/PLAN: 1) ortho: s/p right TKR POD #1 - physical therapy - prn pain medication - incentive spirometer 2) endo niddm - continue metformin 3) card hyperlipidemia - resume statin upon discharge hypertension - continue ramipril, b/p at goal f/e/n - low sodium/cholesterol diet ppx asa oob pt Dispo: We will continue to follow the patient. Thank you for this consultative opportunity. Visit type - Emergency Visit Emergency Visit: No - New Patient This patient is new to me today: Yes Date on this admission: 10/05/16 - Critical Care Critical Care patient: No - Discharge Referral Referred to [facility] Med P.C.: No
[2016-10-05 08:47] LABS: MEAN PLT VOLUME 9.1 fl (7.5-11.1); PLATELET COUNT 189 K/MM3 (134-434); RDW 14.2 % (11.9-15.9)
[2016-10-05 08:52] LABS: ANION GAP 8 (8-16); CALCIUM 8.8 mg/dl (8.4-10.2); CO2 24 mmol/L (22-28); CREATININE 1.2 mg/dl (0.6-1.3)
[2016-10-05] MEDS: PANTOPRAZOLE 40 MG TABLET (FP) PO SCH (09:38)
[2016-10-05] MEDS: oxyCODONE HCL 10 MG SUSTAINED ACTING TABLET PO SCH ×2 (09:38→21:21)
[2016-10-05] MEDS: SENNOSIDES/DOCUSATE COMBO (SENNA PLUS) TABLET (UD) PO SCH ×2 (09:38→21:22)
[2016-10-05] MEDS: RAMIPRIL 5 MG CAPSULE (FP) PO SCH (09:38)
[2016-10-05] MEDS: GABAPENTIN 300 MG CAPSULE (FP) PO SCH ×2 (09:38→21:22)
[2016-10-05] MEDS: FERROUS SO4 325 MG TABLET (FP) PO SCH ×2 (09:38→21:22)
[2016-10-05] MEDS: MULTIVITAMINS (DAILY MVI) TABLET (FP) PO SCH (09:39)
[2016-10-05] MEDS: ASCORBIC ACID 500 MG TABLET (FP) PO SCH ×2 (09:39→21:22)
[2016-10-05] MEDS: CELECOXIB 200 MG CAPSULE PO SCH (09:39)
[2016-10-05] MEDS: ASPIRIN 325 MG TABLET PO SCH ×2 (09:46→21:20)
--- NOTE | 2016-10-05 10:57 | OP ---
DATE OF OPERATION: 10/04/2016 SURGEON: Derek Davis MD WINDOWS APPLICATION DEVELOPER: Karie Manriquez, whose skilled surgical assistance was necessary for the retraction and protection of vital structures and for the handling and implementation of precise and delicate surgical instrumentation as well as the overall safe conveyance of the procedures. ANESTHESIOLOGIST: Zack Trujillo MD TYPE OF ANESTHESIA: Spinal with bilateral adductor canal blocks. PREOPERATIVE DIAGNOSIS: Severe right knee osteoarthritis with varus deformity and flexion contracture. POSTOPERATIVE DIAGNOSIS: Severe right knee osteoarthritis with varus deformity and flexion contracture. PROCEDURE: Computer-navigated right total knee replacement. HARDWARE USED: Highlight and Highlight PFC Sigma PCL-retaining knee replacement system with a size 6 Press-Fit femur, size 6 cemented tibia, and a 10-mm polyethylene liner. One bag of AccessData bone cement was used. It was used with a vacuum mixing bowl. Patella was left unresurfaced. BLOOD LOSS: Approximately 150 mL. ANTIBIOTICS: Kefzol 2 g was given preoperatively for prophylaxis against infection. Additional Kefzol was given at the time of wound closure. There was 1 g of tranexamic acid given preoperatively, a 2nd gram was given at the time of wound closure, a 3rd gram was instilled into the wound at the time of wound closure. FLUID GIVEN: Crystalloid. COMPLICATIONS: None. INDICATIONS: The patient is a 71-year-old male well known to me status post total knee replacement on his opposite knee from which he has made an excellent recovery. He would now like to proceed with right total knee replacement as his knee is bothering him severely. Treatment options were reviewed. Both operative and nonoperative treatment was discussed at length with the patient including additional therapy, injection therapy versus surgery. The patient understands the risks involved with the surgery. We again reviewed these with him. They were explained to include, but not be limited to, infection, stiffness, continued pain, chance that not all his symptoms may be relieved, chance that he could have a blood clot that could spread from his legs to his lungs and even cause , and this could occur despite DVT prophylaxis, chance that should he develop an infection it would be a complete disaster necessitating removing his knee, placing him on long-term IV antibiotics, and chance that should the infection not be curable he could be left without a knee replacement. The patient understands this. He has identified his right knee is the operative site, which I have signed, and he agrees to proceed with the planned procedure. DESCRIPTION OF PROCEDURE: After administration of regional anesthetic by the anesthesiologist in the preoperative holding area, the patient was brought into the operating room where spinal anesthetic was administered by the anesthesiologist. The right leg then had a tourniquet placed behind the right leg, but it was not inflated during the procedure. Preoperative range of motion was approximately loss of terminal 20 degrees of extension with flexion limited to 70 degrees. The leg was then prepped and draped in the usual sterile manner. Standard midline incision was made. The incision was carried down to the subcutaneous tissues onto the extensor mechanism using the electrocautery device and Aquamantys device throughout the procedure to maintain hemostasis. The patella was everted. There was obvious, severe tricompartmental osteoarthritis. All of the osteophytes and menisci were removed. ACL was released. PCL was recessed. Medial and posterior capsular release was then performed. After this, 2 sets of 4-mm guide pins were then placed in the medial aspect of the proximal tibia and medial aspect of the distal femur too, which the computer ray was then attached. The patient's hip center of rotation and patient's bony anatomy were then entered into the computer navigation device. The tibia then the femur were machined to create balance flexion/extension gaps with neutral varus/valgus alignment. Trial components with a size 6 femur and size 6 tibia with a 10-mm polyethylene tray revealed full and easy extension, full and easy flexion with good tracking of the patella, neutral varus/valgus alignment. No instability of varus or valgus stress throughout the range. The trial components were then removed. The exposed bony cancellous surfaces and wound were then prepared irrigated with copious amounts of antibiotic normal saline solution. One bag of Batsheva bone cement was then mixed in a vacuum mixing bowl. This was then finger pressurized into the exposed bony cancellous surfaces of the patient's proximal tibia as well as being precoated on the tibial component. The tibial component was then impacted in place. The femoral component was then impacted in place. The knee was held in extension with a trial 10-mm polyethylene liner until the cement had hardened. Once again, the knee was taken through a trial range of motion with the trial spacer and found to have equal stability and excellent balance compared to that of the trial. The final polyethylene spacer was then impacted in place. The patient had full and easy extension and full and easy flexion with neutral varus/valgus angulation and excellent tracking of the patella. A dilute Betadine solution was instilled into the wound and allowed to sit for 3 minutes. This was then evacuated, and the wound was then irrigated with copious amounts of antibiotic normal saline solution. The extensor mechanism was then reapproximated to itself using interrupted [id number] No. 2 FiberWire, and then with the knee in maximum flexion, a running No. 1 Stratafix suture to then used in a running fashion to further reapproximate the extensor mechanism. Then 1 g of tranexamic acid and 60 mL of local including bupivacaine, morphine, and Toradol were instilled into the knee. The subcutaneous tissues were then closed with undyed 2-0 Vicryl suture and then a running 2-0 Stratafix suture with the knee in maximal flexion to further reapproximate the skin edges. Dermabond was then applied as well as closing the stab incisions for the guide pins for the computer navigation device were closed with 3-0 Biosyn and Dermabond. After the Dermabond had fully hardened, Aquacel dressings were then applied, an ABD pad was applied, and then thigh-high Mc stockings were placed on the patient's leg. Postoperatively, the patient will be full weightbearing as tolerated. We are going to have DVT prophylaxis with bilateral thigh high Mc stockings, sequential compression devices, early amputation, and aspiration 325 mg twice daily for the first 4 weeks. We are not going to use a Serrano catheter if at all possible to prevent a urinary tract infection and dreaded periprosthetic infection. We are going to discontinue prophylactic antibiotics within 24 hours. Intraoperative x-rays were obtained as well. DEREK DAVIS M.D. [id number]
[2016-10-05 11:22] LABS: GLUCOSE,RANDOM 154 mg/dl (74-106)
[2016-10-06] MEDS: ACETAMINOPHEN 325 MG TABLET (FP) PO SCH ×2 (01:21→08:00)
[2016-10-06] MEDS: metFORMIN HCL 500 MG TABLET (FP) PO SCH (06:22)
[2016-10-06] MEDS: ASPIRIN 325 MG TABLET PO SCH (08:00)
[2016-10-06 08:24] LABS: MCH 31.1 pg (25.7-33.7); MCHC 33.4 g/dl (32.0-35.9); MEAN CELL VOLUME 93.2 fl (80-96); MEAN PLT VOLUME 9.2 fl (7.5-11.1); PLATELET COUNT 170 K/MM3 (134-434); RDW 14.6 % (11.9-15.9); WHITE BLOOD COUNT 10.1 K/mm3 (4.0-10.8)
[2016-10-06] MEDS: RAMIPRIL 5 MG CAPSULE (FP) PO SCH (10:20)
[2016-10-06] MEDS: FERROUS SO4 325 MG TABLET (FP) PO SCH (10:20)
[2016-10-06] MEDS: CELECOXIB 200 MG CAPSULE PO SCH (10:20)
[2016-10-06] MEDS: GABAPENTIN 300 MG CAPSULE (FP) PO SCH (10:21)
[2016-10-06] MEDS: oxyCODONE HCL 10 MG SUSTAINED ACTING TABLET PO SCH (10:21)
[2016-10-06] MEDS: SENNOSIDES/DOCUSATE COMBO (SENNA PLUS) TABLET (UD) PO SCH (10:22)
[2016-10-06] MEDS: PANTOPRAZOLE 40 MG TABLET (FP) PO SCH (10:22)
[2016-10-06] MEDS: ASCORBIC ACID 500 MG TABLET (FP) PO SCH (10:23)
[2016-10-06] MEDS: MULTIVITAMINS (DAILY MVI) TABLET (FP) PO SCH (10:23)
[2016-10-06 14:11] VITALS: BP 125/50; PULSE 75; TEMP 97.6
--- NOTE | 2016-10-10 16:52 | PATH ---
Surgical Pathology Report Patient Name: SANJIV LIND JR Med. Rec. #: [id number] /Age/Gender: 1945 (Age: 71) / M Account: [id number] Location: [facility] Taken: 10/04/2016 Received: 10/04/2016 Reported: 10/10/2016 Physicians: Declan Katz M.D. Specimen(s) Received RIGHT KNEE BONE Clinical History Unilateral primary osteoarthritis of right knee Final Diagnosis BONE, RIGHT KNEE, TOTAL KNEE REPLACEMENT: DEGENERATIVE JOINT DISEASE. Electronically Signed Alysa Romero M.D. Gross Description Received in formalin labelled "right knee bone" is an 8 x 8 x 7 cm aggregate of portions of bone attached cason and yellow soft tissue. There is a portion of bone consistent with a tibial plateau which measures 9 x 6.5 x 2 cm. Additional portions of bone consistent with portions of femoral condyle are present. The articular cartilage is markedly irregular and there are extensive areas of eburnation. The underlying bone is firm and uniform. Feed Handler sections are submitted in one cassette for decalcification. [facility]/10/05/2016 [facility]/10/05/2016
== END 2016-10-06 15:10 | disposition home health service (06) | DRG 470 ==
LOC: FM/S 06:43
PROVIDERS: ADMIT Orthopaedic Surgery; ATTEND Orthopaedic Surgery
PROC: 8E0YXBZ Computer Assisted Procedure of Lower Extremity (ICD-10-PCS; 2016-10-04)
PROC: 0SRC0J9 Replacement of Right Knee Joint with Synthetic Substitute, Cemented, Open Approach (ICD-10-PCS; principal; 2016-10-04 09:52)
DX: M17.11 Unilateral primary osteoarthritis, right knee (principal); E11.9 Type 2 diabetes mellitus without complications; E78.5 Hyperlipidemia, unspecified; I10 Essential (primary) hypertension; Z96.652 Presence of left artificial knee joint; M21.161 Varus deformity, not elsewhere classified, right knee; M24.561 Contracture, right knee; Z79.84 Long term (current) use of oral hypoglycemic drugs
CPT/HCPCS: 36415; 73560-TC-RT; 80048; 85027; 88304-TC; 88311-TC; 94010; 94760; 97116-GP; 97162-GP